=== PATIENT | male | born 1985 | race Caucasian/White ===

== ENCOUNTER 2020-12-09 14:02 | Emergency (ER) | payer MEDICAID, SELFPAY ==
--- NOTE | ~2020-12-09 | XR_ITS ---
EXAMINATION: XR knee RT min 4V DATE: 12/09/2020 15:00 INDICATION: Right knee pain. TECHNIQUE: 4 views of right knee were obtained. COMPARISON: Right knee radiographs 05/14/2016 FINDINGS: Bone alignment is normal. No fracture. There is mild osteoarthritis of medial and lateral c ompartments characterized by tiny marginal osteophytes. No knee joint effusion. IMPRESSION: 1. Mild right knee osteoarthritis. Reviewed, dictated and finalized at location A.
[2020-12-09 14:14] VITALS: BP 115/72; PULSE 86; RESP 16; TEMP 37.2; O2SAT 98
--- NOTE | 2020-12-09 14:37 | ED.LOWEXIN ---
HPI - Extremity Injury (Lower) General Chief Complaint: Extremity Injury, Lower Stated Complaint: Right Knee Pain Time Seen by Provider: 12/09/20 14:38 Source: patient Mode of arrival: ambulatory Limitations: no limitations History of Present Illness HPI Narrative: Yunior Hadley cannot fully extend R knee - had an acl injury at age 30 and states that occasionally his knee will dislocate. States he has been unable to pop knee in place since awakening this morning. States is painful to walk Related Data Allergies Allergy/AdvReac Type Severity Reaction Status Date / Time No Known Allergies Allergy Verified 12/09/20 14:22 Review of Systems Review of Systems: Narrative: CONSTITUTIONAL: Denies fever, chills, sweats. EYES: Denies visual changes, redness, discharge. ENT: Denies rhinorrhea, congestion, sore throat, otalgia. CARDIOVASCULAR: Denies chest pain, palpitations, edema. RESPIRATORY: Denies dyspnea, wheezing, cough GASTROINTESTINAL: Denies abdominal pain, nausea, vomiting, diarrhea. GENITOURINARY: Denies dysuria, hematuria, abnormal discharge SKIN: Denies rash or itching. NEUROLOGIC: Denies numbness, or focal weakness. PSYCHIATRIC: Denies anxiety or depression. Right knee pain, unable to extend the knee fully PMFSH Past Medical History Medical History (Updated 12/09/20 @ 15:14 by Cassandra Valdez CNP) ACL laxity Surgical History Surgical History (Updated 12/09/20 @ 14:46 by Cassandra Valdez CNP) History of repair of ACL Social History Social History (Updated 12/09/20 @ 14:46 by Cassandra Valdez CNP) Smoking status: Current every day smoker Tobacco type: e-cigarettes/vaping Alcohol intake: current Gender identity (if verbalized by the patient): Male Comments At time of signature, I agree with nursing past medical, surgical, social and family history. There is no relevant family history pertinent to the presenting complaint. Exam Narrative: Exam Narrative: GENERAL: This is a well-nourished, well-developed patient, in mild distress. HEAD: normocephalic, atraumatic. EYES: PERRL sclera clear/white. Vision is grossly intact. EARS: External ears normal,. Hearing grossly intact. NOSE: External nose normal without nasal discharge, nares without redness, no rhinorrhea. THROAT: Mucous membranes moist, left NECK: Neck supple, is neck CARDIOVASCULAR: Regular rate and rhythm without murmurs, gallops, or rubs. RESPIRATORY: Clear to auscultation. Breath sounds equal bilaterally. No wheezes, rales, or rhonchi. GASTROINTESTINAL: Abdomen soft, non-tender, SKIN: warm, intact with no suspicious lesions or rash, good texture and turgor. NEURO: awake, alert, and oriented to person, place and time. There were no obvious focal neurologic abnormalities. Steady gait although limps favoring the right leg EXTREMITIES: Normal range of motion on L, unable to extend right leg fully, complaining of medial pain on right patella, normal pink color BACK: Nontender without deformity, Course Course Emergency Course: Patient came to [facility] for evaluation of right knee that is partially locked in place-states this happens infrequently after an ACL injury but has no orthopedic surgeon X-ray right knee-results show bone and alignment is normal, tissue swelling, no joint effusion, there is mild knee osteoarthritis Patient offered a knee immobilizer; which she declined- ibuprofen 800 mg or Tylenol arthritis for pain Vital Signs Vital signs: Vital Signs Temperature 99.0 F 12/09/20 14:14 Pulse Rate 86 12/09/20 14:14 Respiratory Rate 16 12/09/20 14:14 Blood Pressure 115/72 12/09/20 14:14 Pulse Oximetry 98 12/09/20 14:14 Temperature 99.0 F 12/09/20 14:14 Pulse Rate 86 12/09/20 14:14 Respiratory Rate 16 12/09/20 14:14 Blood Pressure 115/72 12/09/20 14:14 Pulse Oximetry 98 12/09/20 14:14 MDM - Extremity Injury (Lower) Differential Diagnosis Differential diagnosis: Likely acute interna
--- NOTE | 2020-12-09 15:42 | PC.NURSE ---
1518- pt refused knee immobilizer, stated he has something better at home.
== END 2020-12-09 15:19 | disposition home or self-care (01) ==
PROVIDERS: Emergency Provider Nurse Practitioner
DX: M25.561 Pain in right knee (principal); F17.200 Nicotine dependence, unspecified, uncomplicated
CPT/HCPCS: 73564; 99213; G0463

== ENCOUNTER 2023-10-18 19:25 | Emergency (ER) | payer BC, SELFPAY ==
[2023-10-18 19:40] VITALS: BP 124/69; PULSE 59; RESP 16; TEMP 36.8; O2SAT 98
--- NOTE | 2023-10-18 19:48 | ED.SKABFB ---
HPI - Skin/Abscess/Foreign Bdy General Chief complaint: Skin/Abscess/Foreign Body Stated complaint: Rash Time Seen by Provider: 10/18/23 19:26 Source: patient Mode of arrival: ambulatory Limitations: no limitations History of Present Illness HPI narrative: Jean is a 38-year-old male patient presenting to the clinic today with complaints of a painful rash to the left shoulder blade. He reports this rash started around 4:00 a.m. this morning. Related Data Allergies Allergy/AdvReac Type Severity Reaction Status Date / Time No Known Allergies Allergy Verified 10/18/23 19:44 Review of Systems Review of Systems: Pertinent positives per HPI. Patient denies any fever, chills,headache, visual changes, dizziness, cough, runny nose, sore throat, shortness of breath, chest pain, palpitations, nausea, vomiting, diarrhea, constipation, abdominal pain, or any urinary issues. [facility] Past Medical History Medical History ACL laxity Surgical History Surgical History History of repair of ACL Social History Social History (Updated 12/09/20 @ 14:46 by Cassandra Valdez, [employer]) Smoking status: Current every day smoker Tobacco type: e-cigarettes/vaping Alcohol intake: current Gender identity (if verbalized by the patient): Male Comments At the time of my signature, I reviewed and agree with the nursing past medical, surgical, social, and family history. There is no relevant family history pertinent to the patient complaint. Exam Narrative: General: Well-developed, well nourished, in no apparent distress Head: Normocephalic, atraumatic. Cardio: Regular rate and rhythm, s1 and s2 normal, no murmur appreciated. Resp: Clear to auscultation bilaterally, no rhonchi, rales, wheezing or rubs. Integumentary: Lindstrom, warm, and dry, painful erythematous base rash over the left scapula with vesicular lesions Course Course Emergency Course: Portions of this record may have been created with voice recognition software. Level of Care: Express Care Visit Vital Signs Vital signs: Vital Signs Temperature 36.8 C 10/18/23 19:40 Pulse Rate 59 L 10/18/23 19:40 Respiratory Rate 16 10/18/23 19:40 Blood Pressure 124/69 10/18/23 19:40 Pulse Oximetry 98 10/18/23 19:40 Oxygen Delivery Room Air 10/18/23 19:40 Temperature 36.8 C 10/18/23 19:40 Pulse Rate 59 L 10/18/23 19:40 Respiratory Rate 16 10/18/23 19:40 Blood Pressure 124/69 10/18/23 19:40 Pulse Oximetry 98 10/18/23 19:40 Oxygen Delivery Room Air 10/18/23 19:40 Vital signs reviewed MDM - Skin/Abscess/Foreign Bdy MDM Narrative Medical decision making narrative: At the time of visit patient is resting comfortably on the exam table. Patient appears to be nontoxic. Plan: I suspect patient has shingles to the left shoulder blade. Prescription for acyclovir was sent to the pharmacy. Work note was given. supportive measures were discussed with the patient and they voiced understanding discharge instructions and agrees to treatment plan. Return precautions reviewed Differential Diagnosis Differential diagnosis: Likely abscess of skin or subcutaneous tissue, viral exanthem, urticaria, herpes zoster, allergic reaction to drug, cellulitis, eczema, insect bites, impetigo and contact dermatitis Discharge Plan Discharge Clinical Impression: Herpes zoster Qualifiers: Herpes zoster complications: without complications Qualified Code(s): B02.9 - Zoster without complications Patient Disposition: Home, Self-Care Condition: Stable Instructions: Antibiotic Form, Shingles (ED) Additional Instructions: Keep area covered May take Tylenol/Motrin as needed for pain May use lidocaine patches as needed for pain No work until shingles are crusted over as they are contagious when they are opening/draining Prescriptions
== END 2023-10-18 19:55 | disposition home or self-care (01) ==
PROVIDERS: Emergency Provider Nurse Practitioner Family; PCP Family Medicine
DX: B02.9 Zoster without complications (principal); F17.290 Nicotine dependence, other tobacco product, uncomplicated
CPT/HCPCS: 99213; G0463

== ENCOUNTER 2025-02-07 10:45 | Emergency (ER) | payer BC, SELFPAY ==
[2025-02-07 10:53] VITALS: BP 131/93; PULSE 82; RESP 20; TEMP 37.2; O2SAT 98
--- NOTE | 2025-02-07 11:09 | ED.SKABFB ---
HPI - Skin/Abscess/Foreign Bdy General Chief complaint: Skin/Abscess/Foreign Body Stated complaint: poison vani Time Seen by Provider: 02/07/25 10:50 Source: patient Mode of arrival: ambulatory Limitations: no limitations History of Present Illness HPI narrative: 39 yo M presents with poison vani rash for 2 days. 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 very allergic to poison vani. Poison vani rash head to toe. Using calamine lotion. all systems reviewed and negative except as noted above. Related Data Allergies Allergy/AdvReac Type Severity Reaction Status Date / Time No Known Allergies Allergy Verified 02/07/25 10:51 Review of Systems Review of Systems: CONSTITUTIONAL: Denies fever, chills, or sweats. EYES: Denies visual changes, redness, or discharge. ENT: Denies rhinorrhea, congestion, sore throat, or otalgia. CARDIOVASCULAR: Denies chest pain, palpitations, or edema. RESPIRATORY: Denies cough or dyspnea. GASTROINTESTINAL: Denies abdominal pain, nausea, vomiting, or diarrhea. GENITOURINARY: Denies dysuria or hematuria. SKIN: Reports rash and itching. MUSCULOSKELETAL: Denies back pain, joint pain, or myalgia. NEUROLOGIC: Denies headache, numbness, or weakness. PSYCHIATRIC: Denies anxiety or depression. All other systems reviewed are negative, except as documented in HPI. PMFSH Past Medical History Medical History ACL laxity Surgical History Surgical History History of repair of ACL Social History Social History (Updated 12/09/20 @ 14:46 by Cassandra Valdez, [employer]) Smoking status: Current every day smoker Tobacco type: e-cigarettes/vaping Alcohol intake: current Gender identity (if verbalized by the patient): Male Comments At time of signature, agree with nursing past medical, surgical, social and family history. There is no relevant family history pertinent to the presenting complaint. Exam Narrative: GENERAL: This is a well-nourished, well-developed patient, in no apparent distress. HEAD: normocephalic, atraumatic. EYES: PERRL. Sclera clear/white. Vision is grossly intact. EARS: External ears normal NOSE: External nose normal NECK: Neck supple, non-tender without lymphadenopathy, masses or thyromegaly. CARDIOVASCULAR: Regular rate and rhythm without murmurs, gallops, or rubs. RESPIRATORY: Clear to auscultation. Breath sounds equal bilaterally. No wheezes, rales, or rhonchi. SKIN: warm, Dry, intact, good texture and turgor. generalized erythematous, vesicular rash. Some swelling noted to bilateral cheeks. NEURO: awake, alert, and oriented to person, place and time. There were no obvious focal neurologic abnormalities. EXTREMITIES: No joint tenderness, effusion, or edema noted. Course Course Level of Care: [facility] Visit Vital Signs Vital signs: Vital Signs Temperature 37.2 C 02/07/25 10:53 Pulse Rate 82 02/07/25 10:53 Respiratory Rate 20 02/07/25 10:53 Blood Pressure 131/93 H 02/07/25 10:53 Pulse Oximetry 98 02/07/25 10:53 Oxygen Delivery Room Air 02/07/25 10:53 Temperature 37.2 C 02/07/25 10:53 Pulse Rate 82 02/07/25 10:53 Respiratory Rate 20 02/07/25 10:53 Blood Pressure 131/93 H 02/07/25 10:53 Pulse Oximetry 98 02/07/25 10:53 Oxygen Delivery Room Air 02/07/25 10:53 Reviewed MDM - Skin/Abscess/Foreign Bdy MDM Narrative Medical decision making narrative: will treat poison vani rash prednisone, Zyrtec, triamcinolone. Patient given IM Solu-Medrol at [facility]. Discharge Plan Discharge Clinical Impression: Dermatitis due to plants, including poison vani, sumac, and oak Patient Disposition: Home Condition: Stable Instructions: Poison Vani (ED) Additional Instructions: start prednisone prescription today. Apply steroid cream sparingly to affected area, avoid face. Take Zyrtec twice a day. follow-up with primary care physician if not improving. Patient Language: Sami Prescriptions: New prednisone 10 mg tablet See Rx Instructions .ROUTE .COMPLEX Qty: 42 0RF Rx Instructions: Take 6 tablets for 2 days Take 5 tablets for 2 days Take 4 tablets for 2 days Take 3 tablets for 2 days Take 2 tablets for 2 days Take 1 tablet for 2 days triamcinolone acetonide 0.1 % cream 1 applic topical BID Qty: 30 0RF Follow-up/Referrals: Jaime Martin MD [Primary Care Provider] - Stand Alone Forms: Work/School Release IP Time of Disposition: 11:02
== END 2025-02-07 11:15 | disposition home or self-care (01) ==
PROVIDERS: Emergency Provider Nurse Practitioner Family; PCP Family Medicine
DX: L23.7 Allergic contact dermatitis due to plants, except food (principal); F17.290 Nicotine dependence, other tobacco product, uncomplicated
CPT/HCPCS: 96372; 99213; G0463; J2919